=== PATIENT | female | born 1955 | race Caucasian/White ===

== ENCOUNTER 2016-12-02 09:32 | Outpatient (CLI) | payer OTHER | END 2016-12-02 09:33 | disposition home or self-care (01) | DX: G47.10 Hypersomnia, unspecified (principal); G47.8 Other sleep disorders; R06.83 Snoring; R51 Headache ==

== ENCOUNTER 2016-12-29 19:19 | Outpatient (CLI) | payer OTHER | END 2016-12-29 19:20 | disposition home or self-care (01) | DX: G47.61 Periodic limb movement disorder (principal); R06.83 Snoring ==

== ENCOUNTER 2017-01-29 15:56 | Outpatient (CLI) | payer OTHER | END 2017-01-29 15:57 | disposition home or self-care (01) | LOC: SC 15:56 | PROVIDERS: ATTEND Nurse Practitioner Family | DX: G47.61 Periodic limb movement disorder (principal); R06.83 Snoring | CPT/HCPCS: 99212; 99214 ==

== ENCOUNTER 2017-03-17 10:15 | Outpatient (CLI) | payer OTHER | END 2017-03-17 10:16 | disposition home or self-care (01) | LOC: SC 10:15 | PROVIDERS: ATTEND Nurse Practitioner Family | DX: G47.61 Periodic limb movement disorder (principal); R53.83 Other fatigue | CPT/HCPCS: 99212; 99213 ==

== ENCOUNTER 2021-11-13 08:00 | Outpatient (CLI) | payer MEDICARE, OTHER ==
[2021-11-13 15:31] LABS: BILIRUBIN,URINE NEGATIVE (NEGATIVE); GLUCOSE, URINE (UA) NEGATIVE (NEGATIVE); KETONES,URINE (UA) NEGATIVE (NEGATIVE); LEUKOCYTE ESTERASE, URINE SMALL (NEGATIVE); NITRITE,URINE POSITIVE (NEGATIVE); OCCULT BLOOD,URINE NEGATIVE (NEGATIVE); PROTEIN,URINE NEGATIVE (NEGATIVE); UROBILINOGEN,URINE 0.2 (NORMAL) E.U./dL (NORMAL)
[2021-11-13 15:32] LABS: BASOPHILS # (AUTO) 0.1 10^3/uL (0.0-0.1); BASOPHILS % (AUTO) 0.8 %; EOSINOPHILS # (AUTO) 0.1 10^3/uL (0.0-0.7); EOSINOPHILS % (AUTO) 1.4 %; HCT - HEMATOCRIT 43.6 % (37.0-47.0); HGB - HEMOGLOBIN 13.8 g/dL (12.0-16.0); LYMPHOCYTES # (AUTO) 1.4 10^3/uL (1.5-3.5); LYMPHOCYTES % (AUTO) 17.9 %; MEAN CORPUSCULAR HEMOGLOBIN 28.2 pg (27.0-31.0); MEAN CORPUSCULAR HGB CONC 31.7 g/dL (32.0-36.0); MEAN PLATELET VOLUME 10.6 fL (7.9-10.8); MONOCYTES # (AUTO) 0.5 10^3/uL (0.0-1.0); MONOCYTES % (AUTO) 6.2 %; NEUTROPHILS # (AUTO) 5.8 10^3/uL (1.5-6.6); NEUTROPHILS % (AUTO) 73.3 %; PLT - PLATELET COUNT 237 10^3/uL (130-450); RED CELL DISTRIBUTION WIDTH 13.1 % (12.0-15.0); WHITE BLOOD COUNT 7.9 x10^3/uL (4.8-10.8)
[2021-11-13 15:42] LABS: ALBUMIN 4.4 g/dL (3.2-5.5); ALBUMIN/GLOBULIN RATIO 1.3 (1.0-2.2); CALCIUM 9.4 mg/dL (8.5-10.3); CREATININE 0.9 mg/dL (0.4-1.0); POTASSIUM 4.4 mmol/L (3.5-5.0); TOTAL PROTEIN 7.7 g/dL (6.7-8.2)
[2021-11-13 15:48] LABS: AMORPHOUS SEDIMENT,UR Marked /LPF; BACTERIA,URINE Moderate /HPF (None Seen); CLARITY,URINE CLOUDY (CLEAR); RBC,URINE None Seen /HPF (0-5); SQUAMOUS EPITHELIAL CELL,UR FEW Squamous (<= Few)
[2021-11-13 16:43] LABS: THYROID STIMULATING HORMONE 2.19 uIU/mL (0.34-5.60)
== END 2021-11-13 23:59 ==
LOC: LAB.S 08:00
PROVIDERS: ATTEND Physician Assistant
DX: I10 Essential (primary) hypertension (principal)
CPT/HCPCS: 36415; 80053; 81001; 84443; 85025; 87086; 87181

== ENCOUNTER 2022-11-22 08:30 | Outpatient (CLI) | payer MEDICARE, OTHER ==
--- NOTE | 2022-11-27 08:59 | Mammography Report ---
BILATERAL DIGITAL SCREENING MAMMOGRAM 3D/2D: 11/22/2022 CLINICAL: Routine screening. Comparison is made to exams dated: 02/10/2014 mammogram, 09/07/2020 mammogram, 05/03/2016 mammogram, a nd 07/02/2018 mammogram - [facility]. There are scattered areas of fibroglandular density in both breasts (category b / 25%-50% glandular t issue). No significant masses, calcifications, or other findings are seen in either breast. There has been no significant interval change. IMPRESSION: NEGATIVE There is no mammographic evidence of malignancy. A 1 year screening mammogram is recommended. Based on the Tyrer Cuzick model (a risk assessment model) the patients lifetime risk is 4.5% and her 10 year risk is 2.5%. According to the ACR, ACS, and NCCN guidelines, an annual breast MRI exam mateo g with mammogram is recommended if the patients lifetime risk is 20% or greater. This exam was interpreted at Station ID: [id number]. NOTE: For mammograms, a report in lay terms will be sent to the patient. Approximately 15% of breast malignancies will not be visualized mammographically. In the management of a palpable breast mass, a negative mammogram must not discourage biopsy of a clinically suspicious lesion. Electronically Signed By: Gayatri tabares/meagan:11/26/2022 11:00:10 letter sent: No_Letter ACR BI-RADS Category 1: Negative 3341F PARENCHYMAL PATTERN: (A) - The breast(s) demonstrate(s) scattered fibroglandular densities. BI-RADS CATEGORY: (1) - 1 Mammogram [id number] 1 year screening LATERALITY: (B)
== END 2022-11-22 08:31 | disposition home or self-care (01) ==
LOC: DI 08:30
PROVIDERS: ATTEND Nurse Practitioner Acute Care
DX: Z12.31 Encounter for screening mammogram for malignant neoplasm of breast (principal)

== ENCOUNTER 2022-11-22 08:30 | Outpatient (CLI) | payer MEDICARE, OTHER ==
--- NOTE | 2022-11-22 09:56 | DEXA Report ---
PROCEDURE: Dexa Spine and/or Hip INDICATIONS: POSTMENOPAUSAL TECHNIQUE: Dual energy x-ray absorptiometry (DXA) was performed on a [employer]event[employer] System. Regions measur ed are the AP Spine, femoral neck, and if needed forearm. COMPARISON: None. FINDINGS: Lumbar Spine: Bone Mineral Density 1.322 g/cm/cm,T score 1.2, Left Femoral Neck: Bone Mineral Density 0.725 g/cm/cm, T score -2.3, Left Hip: Bone Mineral Density 0.731 g/cm/cm,T score -2.2, (T score greater or equal to -1.0: NORMAL) (T score from -1.1 to -2.4: OSTEOPENIA) (T score less than or equal to -2.5 to: OSTEOPOROSIS) Impression: Osteopenia Patients with diagnosis of osteoporosis or osteopenia should have regular bone mineral density assess ment. For those eligible for Medicare, routine testing is allowed once every 2 years. Testing frequ ency can be increased for patients who have rapidly progressing disease or for those who are receivin g medical therapy to restore bone mass. Reviewed by: Riley Galdamez MD on 11/22/2022 9:54 AM PST Approved by: Riley Galdamez MD on 11/22/2022 9:54 AM PST Station ID: [id number]
== END 2022-11-22 08:31 | disposition home or self-care (01) ==
LOC: DI 08:30
PROVIDERS: ATTEND Nurse Practitioner Acute Care
DX: M85.89 Other specified disorders of bone density and structure, multiple sites (principal); Z78.0 Asymptomatic menopausal state

== ENCOUNTER 2022-12-21 09:00 | Outpatient (CLI) | payer MEDICARE, OTHER ==
--- NOTE | 2022-12-21 10:58 | XRAY Report ---
PROCEDURE: Chest 2 View X-Ray INDICATIONS: WHEEZING TECHNIQUE: 2 views of the chest were acquired. COMPARISON: None. FINDINGS: Surgical changes and devices: None. Lungs and pleura: No pleural effusions or pneumothorax. Lungs are clear. Mediastinum: Mediastinal contours appear normal. Heart size is normal. Bones and chest wall: No suspicious bony lesions. Overlying soft tissues appear unremarkable. IMPRESSION: No evidence of an acute cardiopulmonary abnormality. Reviewed by: Howard Cason DO on 12/21/2022 9:56 AM [facility] Approved by: Howard Cason DO on 12/21/2022 9:56 AM [facility] Station ID: [id number]
== END 2022-12-21 23:59 | disposition home or self-care (01) ==
LOC: DI.S 09:00
PROVIDERS: ATTEND Physician Assistant Medical
DX: J20.9 Acute bronchitis, unspecified (principal)

== ENCOUNTER 2023-03-04 12:47 | Day surgery (SDC) | payer MEDICARE, OTHER ==
[2023-03-04] MEDS ORDERED: PROPOFOL 500 MG/50 ML 500 MG/50 ML VIAL ONE (12:55)
[2023-03-04] MEDS ORDERED: LACTATED RINGERS 1,000 ML IV ONE ×2 (13:20→15:13)
--- NOTE | 2023-03-04 13:33 | ANESTHESIA ---
Pre-Anesthesia VS, & Labs - Diagnosis screening - Procedure colonoscopy Vital Signs: Temp Pulse Resp BP Pulse Ox O2 Flow Rate 36.2 C L 73 16 142/97 H 99 0 03/04/23 13:05 03/04/23 13:05 03/04/23 13:05 03/04/23 13:05 03/04/23 13:05 03/04/23 13:05 Height: 5 ft 4 in Weight (kg): 76 kg Body Mass Index: 28.8 BMI Classification: Overweight - NPO >8 hours - Is Patient ?: No - Lab Results Lab results reviewed: Yes Home Medications and Allergies Home Medications: Ambulatory Orders No Known Home Medications 03/03/23 No Known Home Medications 03/03/23 Allergies/Adverse Reactions: Allergies Allergy/AdvReac Type Severity Reaction Status Date / Time Penicillins Allergy Rash Verified 03/04/23 13:10 Anes History & Medical History - Anesthetic History Anesthesia Complications: reports: No previous complications Family history of Anesthesia Complications: Denies Family history of Malignant Hyperthermia: Denies - Medical History Cardiovascular: reports: Hypertension Pulmonary: reports: Sleep apnea (mild esther, does not wear cpap) Gastrointestinal: reports: None Urinary: reports: None Neuro: reports: None Musculoskeletal: reports: Osteoarthritis Endocrine/Autoimmune: reports: None Skin: reports: None - Surgical History Gynecologic: reports: Hysterectomy Orthopedic: reports: Knee replacement Exam General: Alert, Oriented x3, Cooperative Dental: WNL Mouth Openin Fingerbreadth Neck Mobility: Normal Mallampati classification: II Thyromental Distance: 4-6 cm Respiratory: Lungs clear Cardiovascular: Regular rate Plan Anesthesia Type: MAC Consent for Procedure(s) Verified and Reviewed: No Code Status: Attempt Resuscitation ASA classification: 2-Mild systemic disease Is this case an emergency?: No
[2023-03-04] MEDS ORDERED: PROPOFOL 200 MG/20 ML VIAL IVP ONE (14:12)
[2023-03-04 15:34] VITALS: BP 106/73
--- NOTE | 2023-03-04 15:56 | ANESTHESIA POST OP EVALUATION ---
Anesthesia Post Eval - Post Anesthesia Eval Vitals: Last Vital Signs Temp .3.6 C L 03/04/23 15:15 Pulse 66 03/04/23 15:32 Resp 13 03/04/23 15:32 BP 106/73 03/04/23 15:32 Pulse Ox 97 03/04/23 15:32 O2 Flow Rate 0 03/04/23 13:05 CV Function Including HR & BP: Stable Pain Control: Satisfactory Nausea & Vomiting: Negative Mental Status: Baseline Respiratory Status: Airway Patent Hydration Status: Satisfactory Anesthesia Complications: None
== END 2023-03-04 12:48 | disposition home or self-care (01) ==
LOC: SDS 12:47
PROVIDERS: ATTEND Surgery
PROC: 0DBP8ZZ Excision of Rectum, Via Natural or Artificial Opening Endoscopic (ICD-10-PCS; principal; 2023-03-04 13:45)
DX: Z12.11 Encounter for screening for malignant neoplasm of colon (principal); K62.1 Rectal polyp; K57.30 Diverticulosis of large intestine without perforation or abscess without bleeding; G47.33 Obstructive sleep apnea (adult) (pediatric)
CPT/HCPCS: 45380; J7120

== ENCOUNTER 2023-10-03 10:06 | Outpatient (CLI) | payer MEDICARE, BC ==
--- NOTE | 2023-10-03 13:30 | XRAY Report ---
PROCEDURE: Hip w/Pelvis 2-3V LT INDICATIONS: LEFT HIP PAIN TECHNIQUE: 2 views of the hip were acquired. COMPARISON: None. FINDINGS: Bones: No fractures or dislocations. No suspicious bony lesions. Marked joint space narrowing with subchondral cystic change. Early bony deformity of the left femoral head. Soft tissues: No suspicious soft tissue calcifications or masses. IMPRESSION: Marked bilateral hip osteoarthritis. Kellgren-Marcos scale of osteoarthritis: 3. Reviewed by: Wero Mederos MD on 10/03/2023 1:29 PM [facility] Approved by: Wero Mederos MD on 10/03/2023 1:29 PM [facility] Station ID: [id number]
[2023-10-03 15:15] LABS: BASOPHILS # (AUTO) 0.1 10^3/uL (0.0-0.1); BASOPHILS % (AUTO) 0.5 %; EOSINOPHILS # (AUTO) 0.2 10^3/uL (0.0-0.7); EOSINOPHILS % (AUTO) 1.6 %; HCT - HEMATOCRIT 38.5 % (37.0-47.0); HGB - HEMOGLOBIN 12.2 g/dL (12.0-16.0); LYMPHOCYTES # (AUTO) 1.8 10^3/uL (1.5-3.5); LYMPHOCYTES % (AUTO) 15.7 %; MEAN CORPUSCULAR HEMOGLOBIN 27.9 pg (27.0-31.0); MEAN CORPUSCULAR HGB CONC 31.7 g/dL (32.0-36.0); MEAN CORPUSCULAR VOLUME 88.1 fL (81.0-99.0); MEAN PLATELET VOLUME 10.3 fL (7.9-10.8); MONOCYTES # (AUTO) 0.7 10^3/uL (0.0-1.0); MONOCYTES % (AUTO) 6.1 %; NEUTROPHILS # (AUTO) 8.6 10^3/uL (1.5-6.6); NEUTROPHILS % (AUTO) 75.8 %; PLT - PLATELET COUNT 373 10^3/uL (130-450); RED BLOOD COUNT 4.37 10^6/uL (4.20-5.40); WHITE BLOOD COUNT 11.3 x10^3/uL (4.8-10.8)
[2023-10-03 15:34] LABS: ALBUMIN 3.8 g/dL (3.2-5.5); ALBUMIN/GLOBULIN RATIO 1.2 (1.0-2.2); ALKALINE PHOSPHATASE 66 IU/L (42-121); ALT ALANINE AMINOTRANSFERASE 12 IU/L (10-60); AST ASPARTATE AMINOTRANSFERASE 14 IU/L (10-42); BILIRUBIN,TOTAL 0.9 mg/dL (0.2-1.0); BUN - BLOOD UREA NITROGEN 23 mg/dL (6-20); CALCIUM 9.3 mg/dL (8.5-10.3); CARBON DIOXIDE - CO2 27 mmol/L (21-32); CHLORIDE 106 mmol/L (101-111); CHOL/HDL RATIO 3.3 (<4.4); CHOLESTEROL 197 mg/dL; CREATININE 0.7 mg/dL (0.6-1.3); GFR - MDRD 83 (>89); GLUCOSE 110 mg/dL (74-104); HDL CHOLESTEROL 59 mg/dL; LDL CHOLESTEROL,CALCULATED 118 mg/dL; POTASSIUM 3.9 mmol/L (3.5-4.5); SODIUM 140 mmol/L (135-145); TRIGLYCERIDES 98 mg/dL (48-352); VLDL CHOLESTEROL 20 mg/dL
[2023-10-03 15:48] LABS: THYROID STIMULATING HORMONE 2.22 uIU/mL (0.34-5.60)
== END 2023-10-03 10:07 | disposition home or self-care (01) ==
LOC: DI.S 10:06
PROVIDERS: ATTEND Nurse Practitioner Acute Care
DX: M16.0 Bilateral primary osteoarthritis of hip (principal); Z13.29 Encounter for screening for other suspected endocrine disorder; Z13.228 Encounter for screening for other metabolic disorders; Z13.220 Encounter for screening for lipoid disorders; Z13.0 Encounter for screening for diseases of the blood and blood-forming organs and certain disorders involving the immune mechanism
CPT/HCPCS: 36415; 80053; 80061; 83721; 84443; 85025

== ENCOUNTER 2023-12-09 08:00 | Outpatient (CLI) | payer MEDICARE, BC ==
--- NOTE | 2023-12-09 16:03 | XRAY Report ---
PROCEDURE: Hip 2 View RT INDICATIONS: RIGHT HIP PAIN TECHNIQUE: 2 view(s) of the hip were acquired. COMPARISON: X-ray hip 10/03/2023 FINDINGS: Bones: No fractures or dislocations. No suspicious bony lesions. The visualized pelvic ring appear s intact. Severe bilateral arthritic changes are present within the hips. Subchondral sclerosis as w ell as periarticular osteophytes and subchondral lucencies are present. Overall appearance is stable compared to prior exam. Degenerative changes are present within the lower lumbar spine. Soft tissues: No suspicious soft tissue calcifications or masses. IMPRESSION: Stable appearance of significant bilateral hip arthritic change. Reviewed by: Marah Avitia MD on 12/09/2023 4:02 PM PDT Approved by: Marah Avitia MD on 12/09/2023 4:02 PM PDT Station ID: [id number]
== END 2023-12-09 23:59 | disposition home or self-care (01) ==
LOC: DI.WOS 08:00
PROVIDERS: ATTEND Orthopaedic Surgery
DX: M16.0 Bilateral primary osteoarthritis of hip (principal)

== ENCOUNTER 2023-12-12 08:02 | Outpatient (CLI) | payer MEDICARE, BC ==
[2023-12-12 16:08] LABS: BASOPHILS # (AUTO) 0.1 10^3/uL (0.0-0.1); EOSINOPHILS # (AUTO) 0.2 10^3/uL (0.0-0.7); EOSINOPHILS % (AUTO) 2.9 %; HCT - HEMATOCRIT 42.3 % (37.0-47.0); HGB - HEMOGLOBIN 13.2 g/dL (12.0-16.0); LYMPHOCYTES # (AUTO) 1.9 10^3/uL (1.5-3.5); LYMPHOCYTES % (AUTO) 25.9 %; MEAN CORPUSCULAR HGB CONC 31.2 g/dL (32.0-36.0); MEAN CORPUSCULAR VOLUME 89.6 fL (81.0-99.0); MEAN PLATELET VOLUME 10.8 fL (7.9-10.8); MONOCYTES # (AUTO) 0.5 10^3/uL (0.0-1.0); MONOCYTES % (AUTO) 7.1 %; NEUTROPHILS # (AUTO) 4.5 10^3/uL (1.5-6.6); NEUTROPHILS % (AUTO) 62.3 %; PLT - PLATELET COUNT 220 10^3/uL (130-450); RED BLOOD COUNT 4.72 10^6/uL (4.20-5.40); RED CELL DISTRIBUTION WIDTH 13.9 % (12.0-15.0); WHITE BLOOD COUNT 7.2 x10^3/uL (4.8-10.8)
[2023-12-12 16:55] LABS: % IRON SATURATION 19 % (20-50); IRON 60 ug/dL (50-212); TOTAL IRON BINDING CAPACITY 315 ug/dL (250-450); TRANSFERRIN 225 mg/dL (203-362)
[2023-12-12 17:46] LABS: ESTIMATED AVERAGE GLUCOSE 105 mg/dL (70-100); HEMOGLOBIN A1c% 5.3 % (4.27-6.07)
== END 2023-12-12 08:03 | disposition home or self-care (01) ==
LOC: LAB.S 08:02
PROVIDERS: ATTEND Orthopaedic Surgery
DX: M16.0 Bilateral primary osteoarthritis of hip (principal)
CPT/HCPCS: 36415; 82306; 83036; 83540; 84466; 85025

== ENCOUNTER 2024-01-14 06:14 | Day surgery (SDC) | payer MEDICARE, BC ==
[2024-01-14] MEDS ORDERED: ceFAZolin 2 GM VIAL ONE (06:16)
[2024-01-14] MEDS: LACTATED RINGERS 1,000 ML IV ONE ×2 (06:31→09:59)
[2024-01-14] MEDS: ACETAMINOPHEN 500 MG TABLET PO ONE (06:42)
[2024-01-14] MEDS: CELECOXIB 100 MG CAPSULE PO ONE (06:42)
[2024-01-14] MEDS ORDERED: PROPOFOL 500 MG/50 ML 500 MG/50 ML VIAL ONE (06:56)
[2024-01-14] MEDS ORDERED: BUPIVACAINE 0.25% PF 30 ML VIAL ONE (06:56)
[2024-01-14] MEDS ORDERED: VANCOMYCIN 1 GM VIAL ONE (06:56)
[2024-01-14] MEDS ORDERED: LIDOCAINE-PF 2% 10 ML AMP SUBQ ONE (06:56)
[2024-01-14] MEDS ORDERED: MIDAZOLAM 2 MG/2 ML VIAL ONE (07:01)
[2024-01-14] MEDS ORDERED: BUPIVACAINE 0.5% PF 10 ML VIAL ONE (07:01)
[2024-01-14] MEDS ORDERED: fentaNYL 100 MCG/2 ML VIAL ONE (07:02)
[2024-01-14] MEDS ORDERED: ATROPINE ABBOJECT 1 MG/10 ML SYRINGE IVP PRN (07:19)
[2024-01-14] MEDS ORDERED: NALOXONE 0.4 MG/ML VIAL IVP PRN (07:19)
[2024-01-14] MEDS ORDERED: HYDROmorphone 0.5 MG/0.5 ML SYRINGE IVP PRN (07:19)
[2024-01-14] MEDS ORDERED: ONDANSETRON 4 MG/2 ML VIAL IVP PRN ×2 (07:19→10:06)
[2024-01-14] MEDS ORDERED: ePHEDrine 50 MG/ML VIAL IVP PRN (07:19)
[2024-01-14] MEDS ORDERED: MORPHINE 2 MG/ML CARPUJECT IVP PRN (07:19)
[2024-01-14] MEDS ORDERED: fentaNYL 100 MCG/2 ML VIAL IVP PRN (07:19)
[2024-01-14] MEDS ORDERED: METOCLOPRAMIDE 10 MG/2 ML VIAL IVP PRN (07:19)
--- NOTE | 2024-01-14 07:19 | ANESTHESIA ---
Pre-Anesthesia VS, & Labs - Diagnosis B hip OA - Procedure R AYO Vital Signs: Temp Pulse Resp BP Pulse Ox O2 Flow Rate 36.4 C L 86 12 163/90 H 99 01/14/24 06:42 01/14/24 06:42 01/14/24 06:42 01/14/24 06:42 01/14/24 06:42 Height: 5 ft 4 in Weight (kg): 83.2 kg Body Mass Index: 31.4 BMI Classification: Obese - NPO >8 hours Last Food Intake: tylenol with h20 sips - Is Patient ?: No - Lab Results Lab results reviewed: Yes Home Medications and Allergies Home Medications: Ambulatory Orders Acetaminophen [Tylenol] 650 mg PO Q6H PRN 01/09/24 Ibuprofen [Motrin] 600 mg PO Q6H PRN 01/09/24 Acetaminophen [Tylenol] 650 mg PO Q6H PRN 01/09/24 Ibuprofen [Motrin] 600 mg PO Q6H PRN 01/09/24 Allergies/Adverse Reactions: Allergies Allergy/AdvReac Type Severity Reaction Status Date / Time Penicillins Allergy Rash Verified 03/04/23 13:10 Anes History & Medical History - Anesthetic History Anesthesia Complications: reports: No previous complications Family history of Anesthesia Complications: Denies Family history of Malignant Hyperthermia: Denies - Medical History Cardiovascular: reports: Hypertension Pulmonary: reports: Sleep apnea Gastrointestinal: reports: GERD Urinary: reports: None Neuro: reports: None Musculoskeletal: reports: Osteoarthritis Endocrine/Autoimmune: reports: None Skin: reports: None - Surgical History General: reports: Colonoscopy Gynecologic: reports: Hysterectomy Orthopedic: reports: Knee replacement Exam General: Alert, Oriented x3, Cooperative Dental: WNL Mouth Openin Fingerbreadth Neck Mobility: Normal Mallampati classification: II Thyromental Distance: 4-6 cm Respiratory: Lungs clear, Normal breath sounds, No respiratory distress Cardiovascular: Regular rate Neurological: Normal speech Mental/Cognitive Status: Alert/Oriented X3, Normal for patient Cognitive Status: Within normal limits Plan Anesthesia Type: Spinal Regional Block: Per Surgeon's request for Post Op pain control Consent for Procedure(s) Verified and Reviewed: Yes Code Status: Attempt Resuscitation ASA classification: 2-Mild systemic disease Is this case an emergency?: No
[2024-01-14] MEDS ORDERED: ePHEDrine 50 MG/ML VIAL IVP ONE (07:37)
[2024-01-14] MEDS ORDERED: SODIUM CHLORIDE 0.9% 10 ML VIAL IVP ONE (07:37)
[2024-01-14] MEDS ORDERED: DEXAMETHASONE 10 MG/ML VIAL ONE (07:43)
[2024-01-14] MEDS ORDERED: TRANEXAMIC ACID 1,000 MG/10 ML VIAL ONE (07:43)
[2024-01-14] MEDS ORDERED: LACTATED RINGERS 1,000 ML IV SCH (08:00)
[2024-01-14] MEDS ORDERED: PROPOFOL 200 MG/20 ML VIAL IVP ONE ×2 (08:41→09:12)
[2024-01-14] MEDS: BUPIVACAINE 0.25% PF 30 ML VIAL SUBQ ONE (08:50)
[2024-01-14] MEDS: VANCOMYCIN 1 GM VIAL MC ONE (08:51)
--- NOTE | 2024-01-14 09:36 | OPERATIVE REPORT ---
Operative Report - General Procedure Date: 01/14/24 Planned Procedure: Right total hip replacement Pre-Op Diagnosis: Osteoarthritis right hip Procedure Performed: Right total hip replacement: [employer]hew #4 noncemented, standard offset kalina ar stem with collar, 52 mm R3 acetabular cup with neutral polyethylene liner, 36 mm Oxinium +0 femoral head Post Op Diagnosis: Same as preoperative diagnosis - Procedure Note Primary Surgeon: Vik Zavala MD Secondary Surgeon: Edie ANGEL Anesthesia Provider: Mariusz Beasley CRNA Anesthesia Technique: Spinal Estimated Blood Loss (mL): 150 Indications: Is a 68-year-old woman who has been in relatively good general health has advanced and progressive symptomatic bilateral hip osteoarthritis that has not responded to nonoperative treatment, has led to difficulties with activities of daily living and activities that she enjoys doing. She had painful and restricted motion to both hips, positive FADIR and Stinchfield test. She does not have any major back issues in terms of lumbar spine. Her neurovascular was intact. X-rays that have been reviewed show advanced degenerative joint disease both hips, complete loss of joint space with osteophytes. She has had medical evaluation prior to surgery and has attended joint camp. She has signed informed consent agreeing to the right total hip replacement as an outpatient at [facility] Findings: There is complete loss of articular cartilage to both femoral head and acetabulum. There was eburnation of bone to the femoral head and a deformity of the femoral head. Complications: None - Other Other Information/Narrative: After satisfactory spinal anesthesia had been achieved, the patient was placed in a lateral decubitus position with the right hip facing superiorly. The patient was secured in the lateral decubitus position using a pegboard with 2 post securing the torso and 2 posts securing the pelvis. The right hip and right lower extremity were prepped and draped in a sterile manner in the usual fashion. A timeout procedure was performed by the entire operating room team and all were in agreement. A longitudinal incision was made about the lateral right hip beginning at the vastus lateralis ridge of the proximal femur and extending it proximally approximately 3 fingerbreadths above the trochanter. The subcutaneous tissue and fascia genet were split in line with the incision. The anterior one third of the gluteus medius was incised at the myotendinous junction. The gluteus medius was retracted medially. The hip capsule was exposed and was split in a T-shaped fashion. Part of the anterior hip capsule was excised. The femoral head was dislocated with flexion, adduction and external rotation. An osteotomy was done to the femoral neck using a osteotomy guide. Retractors were placed behind the femoral neck to protect the soft tissues from the oscillating saw. The proximal femur was retracted. 2 acetab ular retractors were placed one anteriorly directly against bone to reduce any soft tissue impingement to femoral nerve. The second retractor was placed more posteriorly directly against bone and preventing any impingement against sciatic nerve. The acetabulum was prepared with a large curette. Medialization of the acetabulum was performed with a small acetabular reamer and then widening was do ne up to a 51 mm reamer . A trial 52 acetabular cup fit well . A 52 mm R3 3- hole acetabular cup was placed in approximately 20 degrees anteversion and 40 degrees of abduction This had good fixation to push pull and rotation. The stability of the acetabular cup was very good. A permanentl acetabular liner was inserted into the cup. The femoral canal was opened with a box osteotome, starting reamer and then a short broach. Broaching was carried out to a #4. Good fit and stability with the #4 stem was achieved. Trial reduction was performed. Hip motion was very good and the hip was stable to dislocation maneuvers. The trial components were removed. The #4 polar standard femoral stem was impacted and fully seated. The 36 mm femoral head was impacted on the femoral trunnion. There was good stability to push pull and rotation. The hip was reduced, had good leg length tension and good stability with dislocation maneuvers. 3-minute lavage with dilute Betadine was performed. The hip abductors were repaired at the myotendinous junction with #1 STRATAFIX. The fascia genet was closed with #1 STRATAFIX. The subcutaneous tissue was closed with 2-0 STRATAFIX. The skin was closed with a 3-0 Monocryl subcuticular closure and Dermabond. Irrisept irrigation was used intermittently throughout the procedure. The patient received 2 g of Ancef intravenously and Tranxemic acid The patient tolerated the procedure well. A physician office manager executive assistant was utilized during the procedure to provide retraction and protection of neurovascular structures as well as to facilitate dislocation and reduction of the hip joint.
[2024-01-14] MEDS ORDERED: fentaNYL 250 MCG/5 ML VIAL IVP PRN (10:06)
[2024-01-14] MEDS ORDERED: DOCUSATE SODIUM 100 MG CAPSULE PO PRN (10:06)
[2024-01-14] MEDS ORDERED: SODIUM CHLORIDE FLUSH 0.9% 10 ML SYRINGE IVP PRN (10:06)
--- NOTE | 2024-01-14 10:54 | XRAY Report ---
PROCEDURE: Pelvis 1-2V INDICATIONS: post operative from AYO TECHNIQUE: 1 view(s) of the pelvis acquired. COMPARISON: None. FINDINGS: Bones: Patient is status post right total hip arthroplasty. Right hip alignment is anatomic. No fract ures or dislocations. No gross hardware loosening or failure. No suspicious bony lesions. Severe le ft hip joint osteoarthritic changes are seen. Soft tissues: Visualized bowel gas pattern is normal. Expected postsurgical changes are noted in rig ht hip soft tissue. IMPRESSION: Expected postsurgical changes from right total hip arthroplasty with anatomic right hip alignment. Reviewed by: Uriel Serrano MD on 01/14/2024 10:53 AM PDT Approved by: Uriel Serrano MD on 01/14/2024 10:53 AM PDT Station ID: [id number]
--- NOTE | 2024-01-14 11:18 | ANESTHESIA POST OP EVALUATION ---
Anesthesia Post Eval - Post Anesthesia Eval Vitals: Last Vital Signs Temp 36.8 C 01/14/24 10:30 Pulse 59 L 01/14/24 10:30 Resp 16 01/14/24 10:30 BP 146/85 H 01/14/24 10:30 Pulse Ox 99 01/14/24 10:30 O2 Flow Rate CV Function Including HR & BP: Stable Pain Control: Satisfactory Nausea & Vomiting: Negative Mental Status: Baseline Respiratory Status: Airway Patent Hydration Status: Satisfactory Anesthesia Complications: None
[2024-01-14] MEDS: ACETAMINOPHEN 500 MG TABLET PO SCH (11:31)
[2024-01-14] MEDS: oxyCODONE 5 MG TABLET PO PRN (13:53)
[2024-01-14] MEDS: ceFAZolin (2G) 2 GM in SODIUM CHLORIDE 0.9% MINIBAG 100 ML IV SCH (13:54)
[2024-01-14] MEDS: NS W/20 MEQ KCL 1,000 ML IV SCH (13:55)
--- NOTE | 2024-01-14 15:52 | PHARMACY PROGRESS NOTE ---
- Best Possible Medication History Admit Date and Time: Processed by: Nursing Medications reviewed in ED?: No Medication History completed: Yes Patient Interview: Completed Secondary Source(s): Insurance records As the person ultimately responsible for medication therapy, providers are able to order a medication from an existing home medication list in [facility] via the "Reconcile Routine" prior to Confirmation of that medication by application support lead. Such practice is discouraged except when the physician, in their clinical judgment, deems that a medical need exists for a medication without regard to previous use.
[2024-01-14] MEDS: traMADol 50 MG TABLET PO PRN (16:50)
[2024-01-14] MEDS: ethyl alcohoL 62% SWAB AMPULE NAS SCH (21:07)
[2024-01-14] MEDS: SODIUM CHLORIDE FLUSH 0.9% 10 ML SYRINGE IVP SCH (21:07)
[2024-01-14] MEDS: CELECOXIB 100 MG CAPSULE PO SCH (21:07)
[2024-01-14 23:37] VITALS: O2SAT 97
[2024-01-15] MEDS: dexAMETHasone 4 MG TABLET PO SCH (06:16)
--- NOTE | 2024-01-15 07:19 | PROVIDER PROGRESS NOTE ---
Subjective - General Procedure Date: 01/14/24 Post Op Days: 1 Procedure Performed: Right total hip arthroplasty - Other Other Information/Narrative: Sitting semirecumbent in bed, comfortable Improved pain control today, worse with movement and weightbearing She denies chest pain, dyspnea, nausea and vomiting Objective - Patient Data Reviewed Vital Signs: Yes Vital Signs: Vital Signs x48h Temp Pulse Resp BP Pulse Ox 01/15/24 06:20 37.1 C 88 20 159/81 H 97 01/14/24 23:36 36.9 C 83 18 130/68 97 Weight: Weight 01/13/24 01/14/24 01/15/24 23:59 23:59 23:59 Weight (kg) 83.2 kg Intake & Output: Intake and Output Totals x24h 01/13/24 01/14/24 01/15/24 23:59 23:59 23:59 Intake Total 960 101 Output Total 550 Balance 410 101 - Imaging Results Radiology Imaging: positive: Final report received - Current Medications Current Medications: Current Medications Generic Name Dose Route Start Last Admin Trade Name Freq PRN Reason Stop Dose Admin Acetaminophen 1,000 mg 01/14/24 11:00 01/15/24 06:15 Acetaminophen 500 Mg Tablet PO Not Given Q6H LISBET Alcohol 1 amp 01/14/24 21:00 01/14/24 21:07 Ethyl Alcohol 62% Swab Ampule ITALO 1 amp BID LISBET Administration Celecoxib 200 mg 01/14/24 21:00 01/14/24 21:07 Celecoxib 100 Mg Capsule PO 200 mg BID LISBET Administration Potassium Chloride/Sodium Chloride 1,000 mls @ 100 mls/hr 01/14/24 11:00 01/14/24 21:44 Normal Saline 0.9% W/20 Meq Kcl IV 100 mls/hr .Q10H LISBET Administration Oxycodone HCl 5 mg 01/14/24 10:06 01/14/24 13:53 Oxycodone 5 Mg Tablet PO 5 mg Q6HR PRN Administration Severe Breakthrough pain(8-10) Sodium Chloride 10 ml 01/14/24 17:00 01/15/24 00:58 Sodium Chloride Flush 0.9% 10 Ml Syringe IVP Not Given 0100,0900,1700 LISBET Tramadol HCl 50 mg 01/14/24 10:06 01/14/24 16:50 Tramadol 50 Mg Tablet PO 50 mg Q6HR PRN Administration Severe Breakthrough pain(8-10) - Physical Exam Comments/Other: well-developed, no well-nourished, 68-year-old female, no acute distress Mepilex dressing is dry and intact to right hip without drainage or hematoma Neurovascular intact to femoral and sciatic nerve distribution to right lower ex tremity ABX Reporting Has patient been on IV antibiotics over the past 48 hours?: Yes Impression/Plan - Problem List Problem List: 68-year-old female with no pertinent past medical history is postoperative day 1 from a right total hip arthroplasty by Dr. Zavala at [facility] on 01/14/2024. She is recovering well today with improved pain control. She is tolerating oral diet and is awaiting physical therapy this morning. Yesterday during physical therapy, patient had an increase in blood pressure to 175/110 when she was moved to a standing position with physical therapy. She states at that time she had an increase in pain and stress. Patient was evaluated by Dr Zavala and myself and her most recent blood pressure was 165/88. She denied any symptoms of chest pain, dyspnea, nausea, emesis, blurred vision or headache. After patient return to bed, blood pressure steadily decreased overnight and she continued to be asymptomatic. She does not take any antihypertensives regularly. Last year she reports a diagnosis of hypertension and she monitors her blood pressure at home weekly. She returned to normotensive blood pressure in the 120's systolic, however, over the past 2 to 3 weeks she has been noticing a steady rise in her blood pressure to the 130s and most recently the 140s systolic several days prior to surgery. She reported moderate pain at rest during orthopedic evaluation. Plan: - Discharge home today pending physical therapy and occupational therapy evaluation this morning - DVT prophylaxis with 81 mg of aspirin twice daily for 6 weeks, SCDs in hospital - Physical and occupational therapy evaluation this morning - Pain control with scheduled tylenol, celebrex, tramadol and oxycodone as needed - Weight bearing as tolerated with front wheeled walker at all times - Follow up with orthopedic clinic in 5 days - Mepilex dressing to remain in place until follow up - Refer to OPS discharge instructions and call the orthopedic office with outstanding questions - Bowel regimen if needed - Normal diet, IV fluids to be discontinued when tolerating oral diet without nausea and emesis - Follow-up with primary care provider regarding blood pressure after discharge
[2024-01-15 08:19] VITALS: BP 152/82
[2024-01-15] MEDS: ASPIRIN EC 81 MG TABLET PO SCH (08:49)
== END 2024-01-15 12:45 | disposition home or self-care (01) ==
LOC: SDS 06:14 → MS2 09:45 → SDS 01-15 12:45
PROVIDERS: ATTEND Orthopaedic Surgery
DX: M16.0 Bilateral primary osteoarthritis of hip (principal); E66.9 Obesity, unspecified; Z68.31 Body mass index [BMI] 31.0-31.9, adult; I10 Essential (primary) hypertension; G47.30 Sleep apnea, unspecified
CPT/HCPCS: 27130; 72170; 97162; 97166; 97530; A9270; C1713; C1776; J3370; J7120; J8540

== ENCOUNTER 2024-03-01 09:46 | Outpatient (CLI) | payer MEDICARE, BC ==
--- NOTE | 2024-03-01 11:15 | XRAY Report ---
Hip w/Pelvis 2-3V RT HISTORY: 68 years of age, TOTAL HIP ARTHROPLASTY,RIGHT TECHNIQUE: Hip w/Pelvis 2-3V RT COMPARISON: 01/14/2024. FINDINGS/IMPRESSION: Status post right total hip arthroplasty, in near anatomic alignment. No hardware complication. Severe degenerative change of the left hip, unchanged. Reviewed by: Sonal Lawrence MD on 03/01/2024 11:13 AM PDT Approved by: Sonal Lawrence MD on 03/01/2024 11:13 AM PDT Station ID: [id number]
== END 2024-03-01 09:47 | disposition home or self-care (01) ==
LOC: DI.S 09:46
PROVIDERS: ATTEND Orthopaedic Surgery
DX: Z47.1 Aftercare following joint replacement surgery (principal); Z96.641 Presence of right artificial hip joint; M16.12 Unilateral primary osteoarthritis, left hip

== ENCOUNTER 2024-04-07 07:18 | Outpatient (CLI) | payer MEDICARE, BC ==
[2024-04-07 07:41] LABS: BASOPHILS # (AUTO) 0.1 10^3/uL (0.0-0.1); EOSINOPHILS # (AUTO) 0.3 10^3/uL (0.0-0.7); EOSINOPHILS % (AUTO) 4.8 %; HCT - HEMATOCRIT 41.3 % (37.0-47.0); HGB - HEMOGLOBIN 12.7 g/dL (12.0-16.0); LYMPHOCYTES % (AUTO) 27.6 %; MEAN CORPUSCULAR HEMOGLOBIN 27.3 pg (27.0-31.0); MEAN CORPUSCULAR HGB CONC 30.8 g/dL (32.0-36.0); MEAN CORPUSCULAR VOLUME 88.6 fL (81.0-99.0); MEAN PLATELET VOLUME 10.5 fL (7.9-10.8); MONOCYTES # (AUTO) 0.6 10^3/uL (0.0-1.0); MONOCYTES % (AUTO) 7.8 %; NEUTROPHILS # (AUTO) 4.2 10^3/uL (1.5-6.6); NEUTROPHILS % (AUTO) 58.5 %; PLT - PLATELET COUNT 191 10^3/uL (130-450); RED BLOOD COUNT 4.66 10^6/uL (4.20-5.40); RED CELL DISTRIBUTION WIDTH 13.6 % (12.0-15.0); WHITE BLOOD COUNT 7.2 x10^3/uL (4.8-10.8)
== END 2024-04-07 07:19 | disposition home or self-care (01) ==
LOC: LAB 07:18
PROVIDERS: ATTEND Orthopaedic Surgery
DX: Z01.812 Encounter for preprocedural laboratory examination (principal)
CPT/HCPCS: 36415; 85025

== ENCOUNTER 2024-05-05 07:16 | Day surgery (SDC) | payer MEDICARE, BC ==
[~2024-05-05 07:16] MED LIST: BUPIVACAINE 0.25% PF 30 ML VIAL ONE; VANCOMYCIN 1 GM VIAL ONE; ceFAZolin 2 GM VIAL ONE
[2024-05-05] MEDS: LACTATED RINGERS 1,000 ML IV ONE (07:22)
[2024-05-05] MEDS: ACETAMINOPHEN 500 MG TABLET PO ONE (07:40)
[2024-05-05] MEDS: DEXAMETHASONE 10 MG/ML VIAL ONE (07:40)
[2024-05-05] MEDS: CELECOXIB 100 MG CAPSULE PO ONE (07:40)
[2024-05-05] MEDS ORDERED: LIDOCAINE-PF 2% 10 ML AMP SUBQ ONE (08:02)
[2024-05-05] MEDS ORDERED: PROPOFOL 500 MG/50 ML 500 MG/50 ML VIAL ONE ×3 (08:02→10:10)
--- NOTE | 2024-05-05 08:02 | ANESTHESIA ---
Pre-Anesthesia VS, & Labs - Diagnosis hip OA - Procedure left total hip arthroplasty Vital Signs: Temp Pulse Resp BP Pulse Ox O2 Flow Rate 36.0 C L 93 10 L 145/99 H 98 05/05/24 07:34 05/05/24 07:34 05/05/24 07:34 05/05/24 07:34 05/05/24 07:34 Height: 5 ft 4 in Weight (kg): 85.2 kg Body Mass Index: 32.2 BMI Classification: Obese - NPO >8 hours - Is Patient ?: No - Lab Results Current Lab Results: Laboratory Tests 05/05/24 07:47: POC Whole Bld Glucose 97 Home Medications and Allergies Allergies/Adverse Reactions: Allergies Allergy/AdvReac Type Severity Reaction Status Date / Time Penicillins Allergy Rash Verified 03/04/23 13:10 Anes History & Medical History - Anesthetic History Anesthesia Complications: reports: No previous complications - Medical History Cardiovascular: reports: Hypertension Pulmonary: reports: Sleep apnea Gastrointestinal: reports: None Urinary: reports: None Neuro: reports: None Musculoskeletal: reports: Osteoarthritis Endocrine/Autoimmune: reports: None Skin: reports: None Smoking Status: Never smoker - Surgical History General: reports: Colonoscopy Gynecologic: reports: Hysterectomy Orthopedic: reports: Hip replacement, Knee replacement Exam General: Alert, Oriented x3 Dental: WNL Mouth Opening: Greater than 4 Fingerbreadths Neck Mobility: Normal Mallampati classification: II Thyromental Distance: greater than 6 cm Respiratory: Lungs clear Cardiovascular: Regular rate Plan Anesthesia Type: Spinal, Fascia Iliaca Block Consent for Procedure(s) Verified and Reviewed: Yes Code Status: Attempt Resuscitation ASA classification: 2-Mild systemic disease Is this case an emergency?: No
[2024-05-05] MEDS ORDERED: MIDAZOLAM 2 MG/2 ML VIAL ONE (08:08)
[2024-05-05] MEDS ORDERED: fentaNYL 100 MCG/2 ML VIAL ONE (08:36)
[2024-05-05] MEDS ORDERED: DEXAMETHASONE 4 MG/ML VIAL ONE (08:46)
[2024-05-05] MEDS ORDERED: ONDANSETRON 4 MG/2 ML VIAL ONE (08:46)
[2024-05-05] MEDS ORDERED: TRANEXAMIC ACID 1,000 MG/10 ML VIAL ONE (08:54)
[2024-05-05] MEDS ORDERED: ePHEDrine 50 MG/ML VIAL IVP ONE (09:06)
[2024-05-05] MEDS: VANCOMYCIN 1 GM VIAL MC ONE (09:17)
[2024-05-05] MEDS: BUPIVACAINE 0.25% PF 30 ML VIAL SUBQ ONE (09:17)
[2024-05-05] MEDS: HYDROGEN PEROXIDE 3% 473 ML BOTTLE TOP ONE (09:20)
[2024-05-05] MEDS: LACTATED RINGERS 100 ML IV ONE (11:20)
[2024-05-05] MEDS ORDERED: MORPHINE 2 MG/ML CARPUJECT IVP PRN (11:24)
[2024-05-05] MEDS ORDERED: ePHEDrine 50 MG/ML VIAL IVP PRN (11:24)
[2024-05-05] MEDS ORDERED: ONDANSETRON 4 MG/2 ML VIAL IVP PRN ×2 (11:24→11:27)
[2024-05-05] MEDS ORDERED: METOCLOPRAMIDE 10 MG/2 ML VIAL IVP PRN (11:24)
[2024-05-05] MEDS ORDERED: ATROPINE ABBOJECT 1 MG/10 ML SYRINGE IVP PRN (11:24)
[2024-05-05] MEDS ORDERED: HYDROmorphone 0.5 MG/0.5 ML SYRINGE IVP PRN (11:24)
[2024-05-05] MEDS ORDERED: fentaNYL 100 MCG/2 ML VIAL IVP PRN ×2 (11:24→11:39)
[2024-05-05] MEDS ORDERED: NALOXONE 0.4 MG/ML VIAL IVP PRN (11:24)
--- NOTE | 2024-05-05 11:25 | OPERATIVE REPORT ---
Operative Report - General Procedure Date: 05/05/24 Planned Procedure: Left total hip arthroplasty Pre-Op Diagnosis: Osteoarthritis left hip Procedure Performed: Left total hip arthroplasty: [employer]hew 52 mm R3 acetabular cup, #[address] em noncemented with collar, standard offset, +0 36 mm Oxinium femoral head, neutral polyethylene Acetabular liner Post Op Diagnosis: Same as preoperative diagnosis - Procedure Note Primary Surgeon: Vik Zavala MD Secondary Surgeon: Olu Juan MD Anesthesia Provider: Wilda Tang CRNA Anesthesia Technique: Spinal Estimated Blood Loss (mL): 150 Indications: This is a 68-year-old woman with polyarticular osteoarthritis, history of knee replacements. She had bilateral hip osteoarthritis and had a right total hip replacement the beginning of the year and is done very well. Her limitations are associated with her left hip with pain, stiffness and difficulty with activities of daily living as well as activities that she cannot do such as prolonged walking. She had tried nonoperative treatment without longstanding success and has progressively worsened as has been documented in the clinical notes. She had restricted motion to left hip associated with pain. Her hip provocative tests including range of motion, impingement and Stinchfield test were abnormal and consistent with osteoarthritis of the left hip. Her x-rays showed advanced changes to the left hip joint, complete absence of joint space, large osteophytes and deformity of head. She has signed informed consent with agreement for left total hip arthroplasty Findings: She had advanced changes to the left hip joint with complete absence of articular cartilage on both sides of the joint with deformity of femoral head. She had a large anterior and superior osteophyte. The hip was very stiff and difficult to dislocate requiring osteotomy and then dislocation of head with removal of acetabular osteophyte. Complications: none - Other Other Information/Narrative: After satisfactory spinal anesthesia had been achieved, the patient was placed in a lateral decubitus position with the right hip facing superiorly. The patient was secured in the lateral decubitus position using a pegboard with 2 post securing the torso and 2 posts securing the pelvis. The left hip and left lower extremity were prepped and draped in a sterile manner in the usual fashion. A timeout procedure was performed by the entire operating room team and all were in agreement. A longitudinal incision was made about the lateral left hip beginning at the vastus lateralis ridge of the proximal femur and extending it proximally approximately 3 fingerbreadths above the trochanter. The subcutaneous tissue and fascia genet were split in line with the incision. The anterior one third of the gluteus medius was incised at the myotendinous junction. The gluteus medius was retracted medially. The hip capsule was exposed and was split in a T-shaped fashion. Part of the anterior hip capsule was excised. The hip could not be dislocated with the usual dislocation maneuvers including the bone hook. Therefore,osteotomy was done to the femoral neck using a osteotomy guide. The head was then removed as usual from the acetabulum. Retractors were placed behind the femoral neck to protect the soft tissues from the oscillating saw. The proximal femur was retracted. 2 acetabular retractors were placed one anteriorly directly against bone to reduce any soft tissue impingement to femoral nerve. The second retractor was placed more posteriorly directly against bone and preventing any impingement against sciatic nerve. The acetabulum was prepared with a large curette. Medialization of the acetabulum was performed with a small acetabular reamer and then widening was done up to a 51 mm reamer the final reamers were placed in approximately 20 degrees anteversion and 45 degrees of abduction. A trial acetabular component was inserted, 51 mm and this fit well. A permanent 52 mm R3 acetabular 3-hole component was then impacted in 40 degrees of abduction and approximately 20 degrees of anteversion. This had good fixation to push pull and rotation. The stability of the acetabular cup was very good. A permanent acetabular liner was inserted into the cup. The femoral canal was opened with a box osteotome, starting reamer and then a short broach. Broaching was carried out to a #4. Good fit and stability to the #4 stem was achieved. Trial reduction was performed. Hip motion was very good and the hip was stable to dislocation maneuvers. The trial components were removed. The #4 polar femoral stem was impacted and fully seated. The femoral head was impacted on the femoral trunnion. There was good stability to push pull and rotation. A 36 mm +0 head was impacted on the trunnion. The hip was reduced, had good leg length tension and good stability with dislocation maneuvers. 3-minute lavage with dilute Betadine was performed. Vancomycin 2 g powder was placed prior to deep closure. The hip abductors were repaired at the myotendinous junction with #1 stratofix. The fascia genet was closed with #1 stratofix. The subcutaneous tissue was closed with 2-0 stratofix. The skin was closed with a 3-0 Monocryl subcuticular closure and Dermabond. The patient tolerated the procedure well. A physician operations manager assistant was utilized during the procedure to provide retraction and protection of neurovascular structures as well as to facilitate dislocation and reduction of the hip joint.The patient received 2 g of Ancef intravenously, Irrisept irrigation intermittently during the procedure, dilute Betadine, vancomycin powder and Tranexemic acid
[2024-05-05] MEDS ORDERED: DOCUSATE SODIUM 100 MG CAPSULE PO PRN (11:27)
[2024-05-05] MEDS ORDERED: SODIUM CHLORIDE FLUSH 0.9% 10 ML SYRINGE IVP PRN (11:27)
[2024-05-05] MEDS ORDERED: LACTATED RINGERS 1,000 ML IV SCH (12:00)
[2024-05-05] MEDS ORDERED: ceFAZolin (2G) 2 GM in SODIUM CHLORIDE 0.9% MINIBAG 100 ML IV SCH (12:00)
[2024-05-05] MEDS: dexAMETHasone 4 MG TABLET PO ONE (12:27)
[2024-05-05] MEDS: ACETAMINOPHEN 500 MG TABLET PO SCH (12:37)
[2024-05-05] MEDS: NS W/20 MEQ KCL 1,000 ML IV SCH (12:38)
--- NOTE | 2024-05-05 13:16 | ANESTHESIA POST OP EVALUATION ---
Anesthesia Post Eval - Post Anesthesia Eval Vitals: Last Vital Signs Temp 36.0 C L 05/05/24 12:54 Pulse 59 L 05/05/24 12:54 Resp 16 05/05/24 12:54 BP 123/80 05/05/24 12:54 Pulse Ox 99 05/05/24 12:54 O2 Flow Rate CV Function Including HR & BP: Stable Pain Control: Satisfactory Nausea & Vomiting: Negative Mental Status: Baseline Respiratory Status: Airway Patent Hydration Status: Satisfactory Anesthesia Complications: None
[2024-05-05] MEDS: traMADol 50 MG TABLET PO PRN (13:23)
--- NOTE | 2024-05-05 13:57 | PHARMACY PROGRESS NOTE ---
- Best Possible Medication History Admit Date and Time: Processed by: Pharmacy Medications reviewed in ED?: No Medication History completed: Yes Patient Interview: Completed Secondary Source(s): Insurance records As the person ultimately responsible for medication therapy, providers are able to order a medication from an existing home medication list in [facility] via the "Reconcile Routine" prior to Confirmation of that medication by application support manager. Such practice is discouraged except when the physician, in their clinical judgment, deems that a medical need exists for a medication without regard to previous use.
--- NOTE | 2024-05-05 14:26 | XRAY Report ---
PROCEDURE: Pelvis 1-2V INDICATIONS: post operative imaging TECHNIQUE: 1 view(s) of the pelvis acquired. COMPARISON: 03/01/2024 FINDINGS: Bones: No acute fractures or dislocations. No suspicious bony lesions. Stable appearance of right t otal hip arthroplasty. Interval left total hip arthroplasty without gross hardware complication. Norm al postoperative alignment. Soft tissues: Visualized bowel gas pattern is normal. No suspicious soft tissue calcifications. IMPRESSION: Status post interval left total hip arthroplasty without acute hardware complication noted on this si ngle view study. Reviewed by: Akhil Ward MD on 05/05/2024 2:25 PM PDT Approved by: Akhil Ward MD on 05/05/2024 2:25 PM PDT Station ID: [id number]
[2024-05-05] MEDS: oxyCODONE 5 MG TABLET PO PRN (14:41)
[2024-05-05] MEDS: ceFAZolin (2G) 2 GM in SODIUM CHLORIDE 0.9% MINIBAG 100 ML IV SCH (15:49)
[2024-05-05 16:36] VITALS: BP 143/82; O2SAT 99
[2024-05-05] MEDS ORDERED: SODIUM CHLORIDE FLUSH 0.9% 10 ML SYRINGE IVP SCH (17:00)
[2024-05-05] MEDS ORDERED: ethyl alcohoL 62% SWAB AMPULE NAS SCH (21:00)
[2024-05-05] MEDS ORDERED: CELECOXIB 100 MG CAPSULE PO SCH (21:00)
[2024-05-05] MEDS ORDERED: ASPIRIN EC 81 MG TABLET PO SCH (21:00)
== END 2024-05-05 16:37 | disposition home or self-care (01) ==
LOC: SDS 07:16 → MS2 12:01 → SDS 16:37
PROVIDERS: ATTEND Orthopaedic Surgery
DX: M16.12 Unilateral primary osteoarthritis, left hip (principal); E66.9 Obesity, unspecified; Z68.32 Body mass index [BMI] 32.0-32.9, adult; Z96.641 Presence of right artificial hip joint
CPT/HCPCS: 27130; 72170; 97162; 97166; A9270; C1713; C1776; J3370; J7120